=== PATIENT | female | born 1970 | race Caucasian/White ===

== ENCOUNTER 2022-05-18 06:22 | Outpatient (CLI) | payer MEDICAID, SELFPAY ==
--- OUTSIDE RECORDS SUMMARY | 2022-05-10 09:50 | XMS_ITS | Continuity of Care Document ---
:1970 Author Care Team Providers Name Role Phone JAYLEN Augustin Primary Care Physician MD Miya M Attending Physician Allergies, Adverse Reactions, Alerts Allergen Type Severity Reaction Last Updated Verified Status Bupropion Allergy Unknown September Yes Active 2018 Social History Smoking Status Status Start Date End Date Date of Observat ion Smokes tobacco daily September (finding) 12:00pm Additional Data Assigned Sex Female Medications Medication Status Dose Units Route Directions Qty Days Start End Ins tructions Date Date Indomethacin Active 50 MG PO Three Times 30 A Day as needed Sertraline Discontin 100 MG PO Daily 30 Novembe [facility] ued r 2018 9:53am Procedures Procedure Date Performed Status NJX AA&/[facility] 20, 2022 completed Block, nerve, genicular April 20, 2022 completed Insurance Providers Guarantor Claribel Corrales Address [address] [place] [address] Contact Info. Home Phone: Payer Policy Id Coverage Id Subscriber's Subscriber Id Effective E xpiration Name Date Date [facility] [id number] Claribel Corrales Medicaid L Plan Encounters Encounter Location(s) Arrival/Admit Date Discharge/Depart Date Provider(s) Registered [place] April 20, [address] [facility] 2:33pm Tony PRICE
--- NOTE | 2022-05-18 08:25 | P.ANES_ITS ---
Chart Event Note Time Seen by Provider: 07:25 Date Seen: 05/18/22 Chart Event Note: won't take cpt code 15541 for radio freq ablation . ASA 2. MDA directed.
--- NOTE | 2022-05-18 08:25 | W.ANESCHARGE ---
Chart Event Note Time Seen by Provider: 07:25 Date Seen: 05/18/22 Chart Event Note: won't take cpt code 54142 for radio freq ablation . ASA 2. MDA directed.
--- NOTE | 2022-05-18 08:29 | W.ANESCHARGE ---
Anesthesia Charges Start Date/Time Anesthesia Start Date: 05/18/22 Anesthesia Start Time: 07:25 Stop Date/Time Anesthesia Stop Date: 05/18/22 Anesthesia Stop Time: 08:00 Summary Emergency: No
--- NOTE | 2022-05-18 08:55 | W.ANESCHARGE ---
Anesthesia Charges Start Date/Time Anesthesia Start Date: 05/18/22 Anesthesia Start Time: 07:25 Stop Date/Time Anesthesia Stop Date: 05/18/22 Anesthesia Stop Time: 08:00 Summary Emergency: No CPT 11422 not in system. ASA 2 medically directed 2-4 CRNAs
== END 2022-05-18 06:23 | disposition home or self-care (01) ==
LOC: INJ CL 06:24
PROVIDERS: PCP Family Medicine; Visit Provider Family Medicine
DX: M17.11 Unilateral primary osteoarthritis, right knee (principal); M25.561 Pain in right knee; G89.29 Other chronic pain
CPT/HCPCS: 64624